=== PATIENT | female | born 1945 | race Asian ===

== ENCOUNTER 2017-07-26 06:23 | Day surgery (SDC) | payer OTHER ==
[2017-07-26 07:34] LABS: ADD MAN DIFF? NO
[2017-07-26 07:38] LABS: BASOPHILS % 0.3 % (0.0-2.0); EOSINOPHILS # 0.1 10^3/ul (0.0-0.5); EOSINOPHILS % 1.8 % (0.0-7.0); HEMATOCRIT 41.3 % (37.0-47.0); HEMOGLOBIN 14.2 g/dl (12.0-16.0); LYMPHOCYTES # 2.3 10^3/ul (0.8-2.9); LYMPHOCYTES % 37.3 % (15.0-51.0); MEAN CORPUSCULAR HEMOGLOBIN 33.3 pg (29.0-33.0); MEAN CORPUSCULAR HGB CONC 34.4 g/dl (32.0-37.0); MEAN CORPUSCULAR VOLUME 96.7 fl (82.0-101.0); MEAN PLATELET VOLUME 8.9 fl (7.4-10.4); MONOCYTE # 0.5 10^3/ul (0.3-0.9); MONOCYTES % 7.7 % (0.0-11.0); NEUTROPHIL # 3.3 10^3/ul (1.6-7.5); NEUTROPHILS % 52.7 % (39.0-77.0); PLATELET COUNT 300 10^3/UL (140-415); RED BLOOD COUNT 4.27 10^6/ul (4.20-5.40); RED CELL DISTRIBUTION WIDTH 11.9 % (11.5-14.5)
[2017-07-26 07:38] LABS: WHITE BLOOD COUNT 6.2 10^3/ul (4.8-10.8)
[2017-07-26] MEDS ORDERED: LIDOCAINE 1% (MDV) 20 ML INJ (07:42)
[2017-07-26] MEDS ORDERED: IODIXANOL LOCM 100 ML BTL (07:42)
[2017-07-26] MEDS ORDERED: HEPARIN 1000 UNITS/ML 10 ML INJ (07:42)
[2017-07-26] MEDS ORDERED: MIDAZOLAM 1 MG/ML 2 ML INJ (07:43)
[2017-07-26] MEDS ORDERED: NITROGLYCERIN (IC) 100 MCG/ML INJ (07:43)
[2017-07-26] MEDS ORDERED: VERAPAMIL 5 MG INJ (07:43)
[2017-07-26] MEDS ORDERED: FENTAnyl 50 MCG/ML VIAL (07:44)
[2017-07-26 07:56] LABS: PROTIME 12.2 Sec (11.9-14.9)
[2017-07-26 08:06] LABS: ANION GAP 15 (8-16); CARBON DIOXIDE 30 mmol/L (21-31); CHLORIDE 97 mmol/L (97-110); GLUCOSE 94 mg/dl (70-220)
[2017-07-26 08:09] LABS: BLOOD UREA NITROGEN 13 mg/dl (7-20); CALCIUM 9.6 mg/dl (8.4-10.2); CREATININE 0.93 mg/dl (0.44-1.00); POTASSIUM 3.8 mmol/L (3.5-5.1); SODIUM 138 mmol/L (135-144)
[2017-07-26] MEDS: SOD CHLORIDE 0.9% 1,000 ML IV (08:47)
== END 2017-07-26 12:40 | disposition home or self-care (01) ==
LOC: SDS 06:23
DX: R07.9 Chest pain, unspecified (principal); R94.31 Abnormal electrocardiogram [ECG] [EKG]; I10 Essential (primary) hypertension; Z87.891 Personal history of nicotine dependence; Z79.82 Long term (current) use of aspirin
CPT/HCPCS: 80048; 85025; 85610; 93005; 93458

== ENCOUNTER 2017-09-23 12:01 | Day surgery (SDC) | payer OTHER ==
[2017-09-23] MEDS ORDERED: PROPOFOL 60 ML (14:02)
[2017-09-23] MEDS ORDERED: LIDOCAINE 2% (SDV) 5 ML INJ (14:02)
== END 2017-09-23 17:25 | disposition home or self-care (01) ==
LOC: GIL 12:01
DX: R19.4 Change in bowel habit (principal); D12.3 Benign neoplasm of transverse colon; K64.8 Other hemorrhoids; K57.90 Diverticulosis of intestine, part unspecified, without perforation or abscess without bleeding; I10 Essential (primary) hypertension
CPT/HCPCS: 45380; 88305